=== PATIENT | male | born 1975 | race Hispanic/Latino ===

== ENCOUNTER 2024-03-25 13:43 | Observation (INO) | payer OTHER ==
[2024-03-25] VITALS (24 sets, daily range): BP systolic 98–142; BP diastolic 56–89
[~2024-03-25] VITALS: Ht 167.6 cm; Wt 82.0 kg
[2024-03-25] MEDS ORDERED: ASPIRIN 81 MG/TAB PO ONE (14:20)
[2024-03-25] MEDS ORDERED: NITROGLYCERIN 0.4 MG/TAB SL ONE (14:20)
[2024-03-25 14:49] LABS: BASO% 0.3 % (0-3); EOS% 0.2 % (0-8); HEMATOCRIT 44.9 % (39.0-50.0); HEMOGLOBIN 15.1 g/dl (14.0-18.0); IMMATURE GRANULOCYTES 0.1 % (0.0-5.0); LYMPH% 7.4 % (15-41); MEAN CELL VOLUME 85.2 fL CALC (80.0-100.0); MEAN CORPUSCULAR HGB 28.7 pG CALC (26.0-32.0); MEAN CORPUSCULAR HGB CONC 33.6 g/dL CAL (32.0-36.0); MONO% 5.3 % (2-13); NEUT# 11.74 thou/uL (1.82-7.42); NEUT% 86.7 % (42-76); RED BLOOD COUNT 5.27 mill/uL (4.70-6.10); RED CELL DISTRI WIDTH 12.4 % (11.5-15.5)
[2024-03-25 14:57] LABS: BILIRUBIN, TOTAL 0.5 mg/dL (0.2-1.3); CREATININE 1.3 mg/dL (0.7-1.3); LIPASE 50 u/l (23-300); POTASSIUM 3.9 mmol/l (3.5-5.1); TOTAL PROTEIN 8.8 g/dL (6.3-8.2)
[2024-03-25] MEDS ORDERED: COZAAR25 MG PO (17:28)
[2024-03-25] MEDS ORDERED: MAGNESIUM HYDROXIDE 30 ML UDC PO PRN (17:30)
[2024-03-25] MEDS ORDERED: ACETAMINOPHEN 325 MG/TAB PO PRN (17:30)
[2024-03-25] MEDS ORDERED: SODIUM CHLORIDE 0.9% 1,000 ML IV PRN (17:30)
[2024-03-25] MEDS ORDERED: ENOXAPARIN SODIUM 40 MG/0.4 ML SYR SC SCH (21:00)
[2024-03-26 04:42] VITALS: BP 97/61
[2024-03-26 05:56] LABS: BASO% 0.4 % (0-3); EOS% 1.7 % (0-8); HEMATOCRIT 42.8 % (39.0-50.0); HEMOGLOBIN 14.3 g/dl (14.0-18.0); IMMATURE GRANULOCYTES 0.1 % (0.0-5.0); LYMPH% 22.6 % (15-41); MEAN CELL VOLUME 86.8 fL CALC (80.0-100.0); MEAN CORPUSCULAR HGB CONC 33.4 g/dL CAL (32.0-36.0); MONO% 10.6 % (2-13); NEUT# 4.62 thou/uL (1.82-7.42); NEUT% 64.6 % (42-76); RED BLOOD COUNT 4.93 mill/uL (4.70-6.10)
[2024-03-26 06:05] LABS: ALBUMIN 4.1 g/dL (3.2-5.0); BILIRUBIN, TOTAL 0.6 mg/dL (0.2-1.3); CREATININE 1.1 mg/dL (0.7-1.3); MAGNESIUM 2.4 mg/dL (1.6-2.3); TOTAL PROTEIN 7.4 g/dL (6.3-8.2)
[2024-03-26 07:35] VITALS: BP 109/67
[2024-03-26 10:29] LABS: CHOLESTEROL HDL RATIO 5.5 (<4.4 (CALC))
[2024-03-26 10:51] VITALS: BP 111/67
[2024-03-26] MEDS ORDERED: ASPIRIN 81 LOW81 MG PO (11:33)
[2024-03-26] MEDS ORDERED: LIPITOR10 M1 PO (11:33)
[2024-03-26 12:50] VITALS: BP 111/67
[2024-03-26 15:30] VITALS: BP 135/75
== END 2024-03-26 15:53 | disposition home or self-care (01) | DRG 313 ==
LOC: EDBD 13:43 → ED 13:43 → ED-I 17:10 → ED 17:43 → MS2 17:44
PROVIDERS: Family Medicine; Nurse Practitioner; Nurse Practitioner Family; ADMIT Internal Medicine; ATTEND Internal Medicine
DX: R07.89 Other chest pain (principal); I10 Essential (primary) hypertension; E78.5 Hyperlipidemia, unspecified
CPT/HCPCS: G0378; J1650